=== PATIENT | female | born 1965 | race Hispanic/Latino ===

== ENCOUNTER → 2019-05-19 | Day surgery (SDC) | payer OTHER ==
[~2019-05-19] MED LIST: ATORVASTATIN CA20 MG PO; BIJUVA 1 MG-101 EACH PO; CALCIUM PO; ESTROVEN 155 M155 MG PO; FENTANYL CITRATE/PF 100MCG/2 ML INJ ONE; MELOXICAM15 MG PO; MIDAZOLAM HCL 2 MG/2 ML VIAL ONE; OMEPRAZOLE40 MG PO; PROPOFOL IV EMULSION 10 MG/ML 50 ML VIAL ONE; VITAMIN D PO
--- OUTSIDE RECORDS SUMMARY | 2019-05-19 06:54 | XMS REPORT ---
Author Author [facility] Address Unknown Phone Unavailable Care Team Providers Care Pattern Finisher Name Role Phone Unavailable Unavailable Payers Payer Name Policy Type Policy Number Effective Date Expiration Date Problems This patient has no known problems. Allergies, Adverse Reactions, Alerts This patient has no known allergies or adverse reactions. Medications This patient has no known medications. Encounters Start Date/Time End Date/Time Encounter Type Admission Type Attending [facility] Facility Care Department Encounter ID 2018-05-06 13:47:44 2018-05-06 13:47:44 Outpatient [facility] [id number] 2018-03-30 10:42:35 2018-03-30 10:42:35 Outpatient [facility] [id number] 2018-03-29 15:07:21 2018-03-29 15:07:21 Outpatient [facility] [id number] 2018-02-02 11:11:06 2018-02-02 11:11:06 Outpatient [facility] [id number] 2018-02-02 09:55:16 2018-02-02 09:55:16 Outpatient [facility] [id number] 2017-11-20 00:00:00 2017-11-20 00:00:00 Outpatient [facility] [id number] 2017-09-25 16:04:59 2017-09-25 16:04:59 Outpatient [facility] [id number] 2017-09-25 14:42:47 2017-09-25 14:42:47 Outpatient [facility] [id number] 2017-09-25 14:32:30 2017-09-25 14:32:30 Outpatient [facility] [id number] 2017-09-25 13:43:28 2017-09-25 13:43:28 Outpatient [facility] [id number] 2017-08-13 09:43:35 2017-08-13 09:43:35 Outpatient [facility] [id number] 2017-08-13 00:00:00 2017-08-13 00:00:00 Outpatient [facility] [id number] 2017-08-13 00:00:00 2017-08-13 00:00:00 Outpatient [facility] [id number] 2017-07-30 00:00:00 2017-07-30 00:00:00 Outpatient [facility] [id number] 2017-06-18 13:46:47 2017-06-18 13:46:47 Outpatient [facility] [id number] 2017-05-13 00:00:00 2017-05-13 00:00:00 Outpatient [facility] [id number] 2017-04-10 15:45:09 2017-04-10 15:45:09 Outpatient [facility] [id number] Results Test Description Test Time Test Comments Text Results Atomic Results Result Comments LIPID PROFILE (CORONARY RISK) 2019-04-03 20:31:00 TRIGLYCERIDES (test code=TRIG) 213 mg/dL 20-150 CHOLESTEROL (test code=CHOL) 262 mg/dL 0-200 CHOLESTEROL/HDL RATIO (test code=CHOLHDL) 4.0 RATIO 0-4.9 RISK ASSOCIATED WITH CHOL/HDL RATIOS: Risk Male Female1/2 AVERAGE 3.43 3.27AVERAGE 4.97 4.442X AVERAGE 9.55 7.053X AVERAGE 23.39 11.04 REFERENCE VALUE IS RELATED TO RISK LEVELS ASRECOMMENDED BY THE LANCE. HEART, LUNG, AND BLOOD INST. HDL CHOLESTEROL (test code=HDL) 56 mg/dL 40-60 LIPOPROTEIN LDL (test code=LDL) 164 mg/dL 100-129 RN PERSONNEL, CONTACT PHYSICIAN IMMEDIATELY IF THIS IS A STROKE, AMI OR CAROTID STENOSIS PATIENT WHEN THE LDL >100 (1ST OCCURENCE, THIS ADMISSION) Reference Interval: mg/dL mmol/L Optimal <100 <2.6Near/above optimal 100-129 2.6- 3.3Borderline High 130-159 3.4-4.1High 160-189 4.1-4.9Very High >=190 >=4.9=========This LDL result is a direct measurement.========= [id number] 09:35:00* Test Item Value Reference Range Comments GLYCOSYLATED HEMOGLOBIN (HA1C) (test code=GLYHGB) 5.4 % 4.5-6.2 ESTIMATED AVERAGE GLUCOSE (test code=EAG) 108 MG/DL THYROID STIMULATING [id number] 09:34:00* Test Item Value Reference Range Comments THYROID STIMULATING HORMONE (test code=TSH) 2.32 uIU/mL 0.36-3.74 TSH REFERENCE RANGES: EUTHYROID: 0.4 - 4.3 HYPO : >7.6 HYPER : <0.1 CBC W/O [id number] 09:27:00* Test Item Value Reference Range Comments WHITE BLOOD CELL (test code=WBC) 5.6 K/mm3 4.5-12.5 RED BLOOD CELL (test code=RBC) 4.71 mill/mm3 3.7-5.2 HEMOGLOBIN (test code=HGB) 13.6 gram/dL 11.5-15.5 HEMATOCRIT (test code=HCT) 41.2 % 36.0-46.0 MEAN CELL VOLUME (test code=MCV) 87.5 fL 80-98 MEAN CELL HGB (test code=MCH) 28.9 picogram 27.0-33.0 MEAN CELL HGB CONCETRATION (test code=MCHC) 33.0 gram/dL 33.0-36.0 RED CELL DISTRIBUTION WIDTH (test code=RDW) 12.4 % 11.6-16.2 RED CELL DISTRIBUTION WIDTH SD (test code=RDW-SD) 40.3 fL 37.0-51.0 PLATELET COUNT (test code=PLT) 306 K/mm3 150-450 MEAN PLATELET VOLUME (test code=MPV) 8.7 fL 6.7-11.0 COMPREHENSIVE METABOLIC [id number] 09:27:00* Test Item Value Reference Range Comments SODIUM (test code=NA) 141 mmol/L 136-145 POTASSIUM (test code=K) 4.1 mmol/L 3.5-5.1 CHLORIDE (test code=CL) 104 mmol/L 101-109 CARBON DIOXIDE (test code=CO2) 32.6 mmol/L 21-32 ANION GAP (test code=GAP) 9 mmol/L 10-20 GLUCOSE (test code=GLU) 100 mg/dL 74-106 BLOOD UREA NITROGEN (test code=BUN) 14 mg/dL 3-21 CREATININE (test code=CREAT) 0.77 mg/dL 0.55-1.3 BUN/CREATININE RATIO (test code=BUN/CREA) 18.2 10-20 TOTAL PROTEIN (test code=PROT) 7.7 g/dL 6.5-8.4 ALBUMIN (test code=ALB) 3.7 g/dL 3.4-4.8 GLOBULIN (test code=GLOB) 4.0 G/DL 1-10 ALBUMIN/GLOBULIN RATIO (test code=A/G) 0.93 RATIO 0.75-1.50 CALCIUM (test code=CA) 9.1 mg/dL 8.4-10.2 BILIRUBIN TOTAL (test code=BILT) 0.30 mg/dL 0.0-1.0 SGOT/AST (test code=AST) 18 U/L 6-32 SGPT/ALT (test code=ALT) 31 U/L 12-78 Note: Change in REFERENCE RANGE due to new reagent method. ALKALINE PHOSPHATASE TOTAL (test code=ALKP) 91 U/L 38-126 - XR CHEST 2 [id number] 09:07:00 Name: NAPOLEON MEZA [facility] : 1965 Age/S:53 /F [address] [facility] Unit#:[id number] Loc: [place] [address] Phys: Hunter Shah III, MD Dis Date: PHONE #: [phone] Status: DEP CLI FAX #: [phone] Exam Date: 04/03/2019 Reason: WELL ADULT EXAM EXAMS: CPT CODE: [id number] XR CHEST 2 V 05201 HISTORY: WELL ADULT EXAM TECHNIQUE: PA and lateral chest x-ray COMPARISON: None FINDINGS: No airspace consolidation or pleural effusion. Normal heart size. Mediastinal silhouette is unremarkable. Visualized osseous structures are grossly intact. IMPRESSION: Negative chest x- ray. LOCATION: at 0907 Reported and signed by: Maranda Salazar D.O. CC: Hunter Shah III, MD Technologist: Deena Ya Trnscrpt Data: 04/03/2019 (906) [email or web address] Orig Print D/T: S: 04/03/2019 (910) PAGE 1 Signed Report - XR SHOULDER 2 + V [id number] 12:44:00 Name: NAPOLEON MEZA [facility] : 1965 Age/S:53 /F [address] [facility] Unit#:[id number] Loc: [place] [address] Phys: Hunter Shah III, MD Dis Date: PHONE #: [phone] Status: REG CLI FAX #: [phone] Exam Date: 03/03/2019 Reason: RT SHOULDER PAIN EXAMS: CPT CODE: [id number] XR SHOULDER 2 + [place] [address] HISTORY: Shoulder pain. COMPARISON: None available. Location: [facility]. 3 views each of the right and left shoulder: No acute fracture or dislocation on either side. Mildly narrowed AC joints bilaterally. The glenohumeral joints are preserved bilaterally. The glenoid, coracoid and the scapula are unremarkable bilaterally. Soft tissues are normal. Sternoclavicular joints are preserved bilaterally. IMPRESSION: No acute fracture or dislocation on either side. Mildly narrowed AC joint. Glenohumeral joints and sternoclavicular joints are preserved. at 1244 Reported and signed by: Alex Smith M.D. CC: Hunter Shah III, MD Technologist: LYNDA RUSS, RT(R),CT Trnscrpt Data: 03/03/2019 (2148) [email or web address] Orig Print D/T: S: 03/03/2019 (6137) PAGE 1 Signed Report - XR SHOULDER 2 + V [id number] 12:44:00 [facility] 1965 Age/S:53 /F [address] [facility] Unit#:[id number] Loc: [place] [address] Phys: Hunter Shah III, MD Dis Date: PHONE #: [phone] Status: REG CLI FAX #: [phone] Exam Date: 03/03/2019 Reason: LT SHOULDER PAIN EXAMS: CPT CODE: [id number] XR SHOULDER 2 + [place] [address] HISTORY: Shoulder pain. COMPARISON: None available. Location: [facility]. 3 views each of the right and left shoulder: No acute fracture or dislocation on either side. Mildly narrowed AC joints bilaterally. The glenohumeral joints are preserved bilaterally. The glenoid, coracoid and the scapula are unremarkable bilaterally. Soft tissues are normal. Sternoclavicular joints are preserved bilaterally. IMPRESSION: No acute fracture or dislocation on either side. Mildly narrowed AC joint. Glenohumeral joints and sternoclavicular joints are preserved. at 1244 Reported and signed by: Alex Smith M.D. CC: Hunter Shah III, MD Technologist: LYNDA RUSS, RT(R),CT Trnscrpt Data: 03/03/2019 (1107) [email or web address] Orig Print D/T: S: 03/03/2019 (1076) PAGE 1 Signed Report
[2019-05-19 09:25] VITALS: BP 124/81
== END | disposition home or self-care (01) ==
LOC: OR 06:53
PROVIDERS: ATTEND Internal Medicine Gastroenterology
DX: K29.70 Gastritis, unspecified, without bleeding (principal); K58.9 Irritable bowel syndrome, unspecified; K64.8 Other hemorrhoids; Z01.810 Encounter for preprocedural cardiovascular examination
CPT/HCPCS: 43239; 45378; 88305; 88312; 93005; J2250; J3010